=== PATIENT | male | born 1995 | race Caucasian/White ===

== ENCOUNTER 2024-04-16 09:46 | Emergency (ER) | payer SELFPAY ==
[2024-04-16 09:50] VITALS: BP 149/94; PULSE 91; TEMP 36.7; O2SAT 99; BMI 23.7
--- NOTE | 2024-04-16 10:04 | US_ITS ---
The [address] [address] Patient Name: GABE YOUNG MRN: [id number] date: 1995 Sex: M Assigned Patient Location: ER Current Patient Location: ER Accession/Order Number: [id number] Exam Date: 04/16/2024 10:05 Report Date: 04/16/2024 10:53 At the request of: DEMARCO VANN Procedure: US scrotum doppler EXAM: US scrotum doppler HISTORY: pain, right testicle COMPARISON: None. TECHNIQUE: Grayscale, color and Doppler FINDINGS: The right testicle is normal in size, contour and echotexture measuring 4.3 x 3.5 x 2.4 cm. Normal color and Doppler flow The right epididymis is normal. 8 mm epididymal cyst. No right hydrocele or varicocele. The left testicle is normal in size, contour and echotexture measuring 4.6 x 3.2 x 2.3 cm. Normal color and Doppler flow The left epididymis is normal.7 mm epididymal cyst. No left hydrocele or varicocele No inguinal hernias observed US/US scrotum doppler IMPRESSION: No acute abnormality. Electronically authenticated by: PHOEBE BOURNE Date: 04/16/2024 10:53
--- NOTE | 2024-04-16 10:07 | ED_ITS ---
HPI HPI - General Adult General Chief complaint: Urogenital-Male Stated complaint: dull ache/ pain in testicle, abdominal pain Time Seen by Provider: 04/16/24 09:47 Source: patient Mode of arrival: walk-in Limitations: no limitations History of Present Illness HPI narrative: 28-year-old male to the emergency department with chief complaint of right testicular pain. He reports he has had a dull mild ache that is been ongoing for the last week. He has been taking some ibuprofen and it seems of gotten better but still persist. He is a nurse. He reports that is not the testicle itself but the epididymis that is tender when he inspects. He denies any fever, sweats, chills. He denies any blood in the urine, dysuria, urgency, frequency. He denies any erythema, warmth, swelling, skin changes in the groin or scrotum. He is otherwise been at his baseline health. There is no traumatic injury. Related Data Previous Rx's ?Medication ?Instructions ?Recorded naproxen 500 mg tablet 500 mg PO BID PRN pain #14 tabs 04/16/24 Allergies Allergy/AdvReac Type Severity Reaction Status Date / Time No Known Drug Allergies Allergy Verified 04/16/24 09:52 Opioid HPI Opioid Management Most Recent Opioid Data: Last Pain Scale 3 04/16/24 09:50 04/16/24 Review of Systems ROS Status of ROS 10 or more systems reviewed and unremark able except as noted in history and below PFSH PFSH Social History Little interest or pleasure in doing things: not at all Feeling down, depressed, or hopeless: not at all Exam Narrative Exam Narrative: VITALS: I have reviewed the triage vital signs. GENERAL: Well developed, well appearing adult in no acute distress. NEURO: Alert and oriented. Moves all extremities. Face is symmetric and expressive. EYES: PERRL. No scleral icterus or conjunctival injection. No discharge. HENT: Normocephalic, atraumatic. Hearing is grossly intact. Nares grossly patent and without discharge. Mucous membranes moist. NECK: No JVD. Patient moves neck without restriction. GI/: Abdomen is soft and non-tender. Normoactive bowel sounds. No appreciable hernias. Scrotum is grossly normal in appearance without crepitus, erythema, or, swelling. Tenderness about the tenderness. Normal exam with testicles bilateral. EXTREMITIES: Symmetric muscle bulk. No joint swelling. No clubbing, cyanosis, or deformity. SKIN: Warm and dry. Normal turgor. No rash or lesions appreciated. PSYCH: Mood, affect, and interaction is appropriate to the setting. Constitutional Vital Signs, click to edit/add: Last Vital Signs Temp 98.1 F 04/16/24 09:50 Pulse 91 H 04/16/24 09:50 Resp 20 04/16/24 09:50 BP 149/94 H 04/16/24 09:50 Pulse Ox 99 04/16/24 09:50 Course Vital Signs Vital signs: Vital Signs Temperature 98.1 F 04/16/24 09:50 Pulse Rate 91 H 04/16/24 09:50 Respiratory Rate 20 04/16/24 09:50 Blood Pressure 149/94 H 04/16/24 09:50 Pulse Oximetry 99 04/16/24 09:50 Temperature 98.1 F 04/16/24 09:50 Pulse Rate 91 H 04/16/24 09:50 Respiratory Rate 20 04/16/24 09:50 Blood Pressure 149/94 H 04/16/24 09:50 Pulse Oximetry 99 04/16/24 09:50 Medical Decision Making MDM Narrative Medical decision making narrative: 28-year-old male to the emergency department with chief complaint of right testicle pain. Vital stable, the patient is afebrile. Testicular exam is unremarkable except for some mild tenderness over the right epididymis. Scrotum and groin are grossly unremarkable, no evidence of Tish's gangrene. No evidence of hernia. Will obtain an ultrasound to rule out torsion and evaluate for epididymitis. Urinalysis ordered. Does not state concern for STD. Patient agrees with this plan. Urinalysis is unremarkable. Scrotal ultrasound without acute abnormality. Discussed reassuring workup with the patient. He will continue to monitor closely. If he has any sudden increase in pain or worsening course he will return to the emergency department immediately. He is given urology follow-up. Will continue with supportive underwear and NSAIDs. Patient was discharged home. Medical Records Medical records reviewed: Yes I reviewed the patient's medical records Lab Data Lab results reviewed: Yes I reviewed the patient's lab results Labs: Lab Results 04/16/24 Range/Units 10:48 Urine Color Lt. yellow (YELLOW) Urine Clarity Clear (CLEAR) Urine pH 6.5 (5.0-9.0) Ur Specific Harrison 1.015 (1.005-1.025) Urine Protein Negative (NEG/TRACE) mg/dL Urine Glucose (UA) Negative (NEGATIVE) mg/dL Urine Ketones Negative (NEGATIVE) mg/dL Urine Occult Blood Negative (NEGATIVE) Urine Nitrite Negative (NEGATIVE) Urine Bilirubin Negative (NEGATIVE) Urine Urobilinogen 0.2 (0.2-1.0) EU/dL Ur Leukocyte Esterase Negative (NEGATIVE) Urine RBC 0-2 (0-2) #/HPF Urine WBC 0-2 A (NONE SEEN) #/HPF Ur Squamous Epith Cells None seen (NONE/RARE) #/LPF Urine Crystals None seen (None Seen) #/HPF Urine Bacteria None seen (NONE SEEN) #/HPF Urine Casts None seen (NONE SEEN) #/LPF Urine Mucus None seen (NONE SEEN) Ur Culture Indicated? No Imaging Data Ultrasound scrotum: Attestation: I have reviewed the pertinent imaging results. Radiologist's impression: ITS Impressions Scrotum Ultrasound 04/16/24 10:04 IMPRESSION: No acute abnormality. Electronically authenticated by: PHOEBE BOURNE Date: 04/16/2024 10:53 Discharge Plan Discharge Chief Complaint: Urogenital-Male Clinical Impression: Testicular pain, right Patient Disposition: Home, Self-Care Time of Disposition Decision: 11:23 Condition: Good Mode of Transportation: Private Vehicle Prescriptions / Home Meds: New naproxen 500 mg tablet 500 mg PO BID PRN (Reason: pain) Qty: 14 0RF Print Language: Syriac Instructions: Testicle Pain (ED) Additional Instructions: Call the office of your primary care doctor to arrange for follow-up within the above-stated timeframe. Your ED visit was focused on your acute issue and does not replace primary care. You should review your labs, imaging, and diagnoses from this ED visit with your primary care physician. There may be non-emergent/ incidental findings that need further evaluation. You should review your vital signs including blood pressure with your PCP. If you were prescribed medications you should discuss possible side-effects and drug interactions with your pharmacist. Call 911 or go to the nearest Emergency Department if you develop any new or worsening symptoms. Seek immediate medical attention if you develop: worsening abdominal pain, new or worsening nausea, new or worsening vomiting, new or worsening diarrhea, chest pain, shortness of breath, pain with urination, problems urinating, fever, chills, weakness, or any new or worsening symptoms. Referrals: Nu Zuniga MD [Physician] - 1 week (Follow-up with urology if you continue to have pain. Return to the ED if there are any sudden changes or worsening course.) Physician,Non-Staff, [Primary Care Provider] - 1 week
[2024-04-16 10:54] LABS: Bilirubin Urine NEGATIVE (NEGATIVE); Blood Urine NEGATIVE (NEGATIVE); Clarity Urine CLEAR (CLEAR); Color Urine LT. YELLOW (YELLOW); Glucose Urine UA NEGATIVE (NEGATIVE); Ketones Urine NEGATIVE (NEGATIVE); Leukocyte Esterase Urine NEGATIVE (NEGATIVE); Nitrite Urine NEGATIVE (NEGATIVE); Protein Urine NEGATIVE (NEG/TRACE); Specific Gravity Urine 1.015 (1.005-1.025); Urobilinogen Urine 0.2 EU/dL (0.2-1.0); pH Urine 6.5 (5.0-9.0)
[2024-04-16 11:10] LABS: Bacteria Urine NONE SEEN #/HPF (NONE SEEN); Cast Seen? NONE SEEN #/LPF (NONE SEEN); Crystals Seen? None Seen #/HPF (None Seen); Mucus Urine NONE SEEN (NONE SEEN); RBC Urine 0-2 #/HPF (0-2); Squamous Epithelial Cell Urine NONE SEEN #/LPF (NONE/RARE); Urine Culture Indicated NO; WBC Urine 0-2 #/HPF (NONE SEEN)
== END 2024-04-16 11:44 | disposition home or self-care (01) ==
PROVIDERS: Emergency Provider Student in an Organized Health Care Education/Training Program
DX: N50.811 Right testicular pain (principal)
CPT/HCPCS: 76870; 81001; 93976; 99284